=== PATIENT | male | born 1965 | race Caucasian/White ===

== ENCOUNTER 2020-11-21 11:28 | Emergency (ER) | payer MEDICAID, SELFPAY ==
--- NOTE | ~2020-11-21 | CT_ITS ---
EXAMINATION: CT ABDOMEN AND PELVIS WITH CONTRAST CLINICAL INFORMATION: Abdominal pain. Periumbilical. COMPARISON: 01/14/2019 TECHNIQUE: Multidetector volumetric images were obtained from the superior aspect of the liver through the pubic symphysis following administration 85 mL of Omnipaque 350 intravenous contrast. Sagittal and coronal reformatted images were obtained on the technologist's workstation. Oral contrast: No This CT examination was performed using dose optimization techniques as appropriate, variously including the following: *Automated exposure control *Adjustment of mA and/or kV according to patient size (this includes techniques or standardized protocols for targeted exams where dose is matched to indication/reason for exam; i.e. extremities or head) *Use of iterative reconstruction technique DLP: 499 mGy-cm FINDINGS: LUNG BASES: The visualized lung bases are unremarkable. LIVER, GALLBLADDER, AND BILIARY TREE: The liver is normal in size, shape, and attenuation. No focal hepatic lesion or biliary ductal dilatation is present. The gallbladder is unremarkable with no evidence of radiopaque gallstones, gallbladder wall thickening, or obvious pericholecystic inflammatory changes. PANCREAS: Unremarkable. SPLEEN: Unremarkable. ADRENAL GLANDS: Unremarkable. KIDNEYS AND URETERS: The kidneys are normal in size, shape, and attenuation. No hydronephrosis, hydroureter, or calculi seen. No perinephric stranding. BLADDER: Unremarkable. GASTROINTESTINAL TRACT: Stomach, small bowel, and colon are normal in caliber. No bowel wall thickening or surrounding inflammatory changes. Appendix is normal. No intraperitoneal free fluid or free air. ABDOMINAL WALL: Very tiny fat-containing umbilical hernia. No bowel involvement. No evidence of strangulation or incarceration.. LYMPH NODES: Normal. VASCULAR: Atherosclerotic calcifications are present in the abdominal aorta and iliac arteries. No aneurysmal dilatation. PELVIC VISCERA: The prostate and seminal vesicles are unremarkable. OSSEOUS STRUCTURES: No acute osseous abnormalities. Lumbar spine appears relatively well-preserved. CT/CT abdomen pelvis w con IMPRESSION: 1. No acute intra-abdominal or intrapelvic abnormalities. Normal appendix. Tiny fat-containing umbilical hernia with no bowel involvement. 2. No appreciable renal or ureteral calculi. No evidence of obstructive uropathy.
[2020-11-21 11:41] VITALS: BP 151/105; PULSE 66; RESP 18; TEMP 36.6; O2SAT 98; BMI 24.3
[2020-11-21 14:21] VITALS: BP 162/100; PULSE 77; RESP 18; TEMP 36.8; O2SAT 98
--- NOTE | 2020-11-21 14:48 | ED.ABDPAIN ---
HPI - Abdominal Pain General Chief Complaint: Abdominal Pain <CLEO Woods Last Filed: 11/21/20 18:26> Stated Complaint: vomiting, diarrhea <CLEO Woods Last Filed: 11/21/20 18:26> Time Seen by Provider: 11/21/20 12:54 <CLOE Woods Last Filed: 11/21/20 18:26> Source: patient <CLEO Woods Last Filed: 11/21/20 18:26> Mode of arrival: ambulatory <CLEO Woods Last Filed: 11/21/20 18:26> Limitations: no limitations <CLEO Woods Last Filed: 11/21/20 18:26> History of Present Illness HPI narrative: patient presents to ED for abdominal pain with diarrhea since yesterday. Denies any fever or chills. Patient states no chest pain, shortness of breath, dysuria, hematuria, flank pain, headache, dizziness, testicular bleeding, penile lesions, penile discharge. Patient denies any recent hospital admission or a new antibiotic prescription <CLEO Woods Last Filed: 11/21/20 18:26> MD elicited complaint: abdominal pain <CLEO Woods Last Filed: 11/21/20 18:26> Related Data Home Medications: Previous Rx's Medication Instructions Recorded ondansetron 4 mg PO Q8H PRN #10 tab 11/21/20 <CLEO Woods Last Filed: 11/21/20 18:26> Allergies/Adverse Reactions: Allergies Allergy/AdvReac Type Severity Reaction Status Date / Time No Known Allergies Allergy Verified 11/21/20 11:53 [No Known Allergies*] <CLEO Woods Last Filed: 11/21/20 18:26> Review of Systems Review of Systems Yes all other systems are reviewed and are negative <CLEO Woods Last Filed: 11/21/20 18:26> Constitutional: Reports as per HPI and Reports no additional constitutional complaints <CLEO Woods Last Filed: 11/21/20 18:26> Eyes: Reports as per HPI and Reports no additional eye complaints <CLEO Woods Last Filed: 11/21/20 18:26> Reports system reviewed and no additional complaints, except as documented and Reports as per HPI <CLEO Woods Last Filed: 11/21/20 18:26> Cardiovascular: Reports as per HPI and Reports no additional cardiovascular complaints <CLEO Woods Last Filed: 11/21/20 18:26> Respiratory: Reports as per HPI and Reports no additional respiratory complaints <CLEO Woods Last Filed: 11/21/20 18:26> Gastrointestinal: Reports as per HPI, Reports no additional gastrointestinal complaints, Reports abdominal pain, Reports diarrhea and Reports nausea <CLEO Woods Last Filed: 11/21/20 18:26> Genitourinary: Reports no additional male genitourinary complaints and Reports as per HPI <CLEO Woods Last Filed: 11/21/20 18:26> Musculoskeletal: Reports no additional musculoskeletal complaints and Reports as per HPI <CLEO Woods Last Filed: 11/21/20 18:26> Reports system reviewed and no additional complaints, except as documented and Reports as per HPI <CLEO Woods Last Filed: 11/21/20 18:26> Psychiatric: Reports no additional psychiatric complaints and Reports as per HPI <CLEO Woods Last Filed: 11/21/20 18:26> Physical Exam Vital Signs: Vital Signs: Last Vital Signs Temp 98.3 F 11/21/20 17:53 Pulse 61 11/21/20 20:15 Resp 16 11/21/20 20:15 BP 163/102 H 11/21/20 20:15 Pulse Ox 97 11/21/20 20:15 Body Mass Index 24.3 <CLEO Woods Last Filed: 11/21/20 18:26> Vital Signs: Last Vital Signs Temp 98.3 F 11/21/20 17:53 Pulse 61 11/21/20 20:15 Resp 16 11/21/20 20:15 BP 163/102 H 11/21/20 20:15 Pulse Ox 97 11/21/20 20:15 Body Mass Index 24.3 <CLEO Vieyra Last Filed: 11/21/20 20:30> Const: General: cooperative, healthy appearing, comfortable, no acute distress, well developed, alert, awake and Physically active <Jaya Hill, PA Geraldine Last Filed: 11/21/20 18:26> Orientation/consciousness: patient oriented x3 <Jaya Sergio, PA Geraldine Last Filed: 11/21/20 18:26> HENMT: Head: Yes normal to inspection, Yes No palpable skull fracture present, Yes normocephalic, Yes atraumatic and No abrasion <Jaya Sergio, PA Geraldine Last Filed: 11/21/20 18:26> Eyes: General: appearance normal, both eyes and all related structures <Jaya Sergio, PA Geraldine Last Filed: 11/21/20 18:26> Neck: Neck: Yes normal visual inspection, Yes full ROM, Yes no lymphadenopathy, Yes no meningeal signs, Yes trachea midline, Yes supple and No tender <Jaya Sergio, PA Geraldine Last Filed: 11/21/20 18:26> Chest: Chest palpation & inspection: normal inspection of the chest and normal palpation of entire chest wall <Jaya Sergio, PA Geraldine Last Filed: 11/21/20 18:26> Resp: Effort & Inspection: normal respiratory effort and able to speak in complete sentences <Jaya Sergio, PA Geraldine Last Filed: 11/21/20 18:26> Auscultation: clear to auscultation bilaterally <Jaya Sergio, PA Geraldine Filed: 11/21/20 18:26> Cardio: Jugular venous distension: no JVD <Jaya Sergio, PA Geraldine Last Filed: 11/21/20 18:26> Heart sounds: S1 normal heart sound present and S2 normal heart sound present <Jaya Sergio, PA Geraldine Last Filed: 11/21/20 18:26> GI: Inspection: Yes normal to inspection and No abdominal wall ecchymosis <Jaya Sergio, PA Geraldine Last Filed: 11/21/20 18:26> Palpation (GI): Tenderness to palpation present (GI) in the LLQ, in the RLQ and periumbilically, no guarding and not rigid <CLEO Woods Geraldine Last Filed: 11/21/20 18:26> : General: No CVA tenderness and Yes no CVA tenderness <CLEO Woods Geraldine Last Filed: 11/21/20 18:26> Back/Spine/Pelvis: Back: no CVA tenderness, No CVA tenderness and No back tenderness <CLEO Woods Last Filed: 11/21/20 18:26> Skin: General skin exam: no rashes or lesions noted and elasticity normal <CLEO Woods Last Filed: 11/21/20 18:26> Neuro: General: patient oriented x3, gait normal, no meningeal signs and CN's II-XI intact bilaterally <CLEO Woods Last Filed: 11/21/20 18:26> Cranial nerves: Yes CN's II-XII intact bilaterally <CLEO Woods Last Filed: 11/21/20 18:26> Extrem: General: Yes normal to inspection and Yes full ROM <CLEO Woods Last Filed: 11/21/20 18:26> Psych: Appearance: grossly normal, well kempt and not disheveled <CLEO Woods Last Filed: 11/21/20 18:26> Course Course Course Narrative: patient has significant tenderness and periumbilical area. Order labs UA and meds. Also would do a SARS Test ordered. Possible CT scan <CLEO Woods Last Filed: 11/21/20 18:26> Reevaluation(s) Reevaluation #1: patient labs are at baseline. UA negative for UTI. COVID swab negative. Patient is sent for abdominal CT scan to rule out any abdominal etiology. Case will be signed out to CLEO Baer <CLEO Woods Last Filed: 11/21/20 18:26> CT scan showing tiny fat containging umbilical hernia. No acute intraabdominal pathology. Labs are unremarkable. COVID negative. Patient awoken from sleep to discuss results. He has no abdominal tenderness. He is stable for discharge home. Probable gastroenteritis causing N/V/D. No vomiting in the 8+ hours observed in the ER. Stable for d/c. Patient agrees with plan. <CLEO Vieyra Last Filed: 11/21/20 20:30> Time: 18:25 <CLEO Woods Last Filed: 11/21/20 18:26> MDM - Abdominal Pain MDM Narrative Medical decision making narrative: abdominal pain <CLEO Woods Last Filed: 11/21/20 18:26> Lab Data Result diagrams: : 11/21/20 15:05 11/21/20 15:05 <CLEO Woods - Last Filed: 11/21/20 18:26> Labs: Lab Results 11/21/20 11/21/20 11/21/20 Range/Units 14:46 15:05 15:05 WBC 6.1 (4.8-10.8) X10*3/uL RBC 4.62 (4.60-5.80) X10*6/uL Hgb 13.9 L (14.0-18.0) g/dl Hct 42.4 (42-52) % MCV 91.8 (80-98) fL MCH 30.1 (27.0-33.0) pg MCHC 32.8 (31.0-36.0) g/dl RDW 12.8 (11.0-16.0) % Plt Count 214 (160-400) X10*3/uL MPV 10.2 (9.4-12.4) fL Immature Gran % (Auto) 0.3 (0.0-0.4) % Neut % (Auto) 70.6 (45-73) % Lymph % (Auto) 18.9 L (20-40) % [place] % (Auto) 9.9 (2-11) % Eos % (Auto) 0.0 (0-4) % Baso % (Auto) 0.3 (0-2) % Lymph # (Auto) 1.2 (1.2-4.9) X10*3/uL [place] # (Auto) 0.6 (0.1-1.2) X10*3/uL Eos # (Auto) 0.0 (0.0-0.4) X10*3/uL Baso # (Auto) 0.0 (0.0-0.2) X10*3/uL Abs Immat Gran (auto) 0.02 (0.00-0.03) X10*3/uL Absolute Neuts (auto) 4.3 (2.0-8.3) X10*3/uL Absolute Nucleated RBC 0.000 (0.0-0.012) X10*3/uL Nucleated RBC % (auto) 0.0 (0.0-0.2) /100WBC PT 11.6 (9.9-13.0) SEC INR 1.0 (0.9-1.1) APTT 29.3 (24.1-38.0) SEC Sodium (135-145) mmol/L Potassium (3.3-5.1) mmol/L Chloride (96-108) mmol/L Carbon Dioxide (22-29) mmol/L Anion Gap (12-20) BUN (9-16) mg/dL Creatinine (0.5-1.4) mg/dL Estim Creat Clear Calc Estimated GFR Random Glucose (60-115) mg/dL Calcium (8.4-10.2) mg/dL Total Bilirubin (0.0-1.0) mg/dL Direct Bilirubin (0.0-0.5) mg/dL AST (5-37) U/L ALT (0-40) U/L Alkaline Phosphatase (39-117) U/L Total Protein (6.5-8.0) g/dL Albumin (3.5-5.0) g/dL Lipase (8-78) U/L Urine Color Urine Appearance Urine pH (5.0-8.0) Ur Specific [place] (1.005-1.025) Urine Protein (NEG-TRACE) MG/DL Urine Glucose (UA) (NEG) MG/DL Urine Ketones (NEG) MG/DL Urine Blood (NEG) Urine Nitrite (NEG) Ur Leukocyte Esterase (NEG) Urine RBC (0) /HPF Urine WBC (0-4) /HPF Ur Squamous Epith Cells /LPF Urine Bacteria /LPF Urine Mucus /LPF Coronavirus (PCR) NEGATIVE (Negative) Influenza Type A (PCR) NEGATIVE (Negative) Influenza Type B (PCR) NEGATIVE (Negative) RSV RNA Qual (PCR) NEGATIVE (Negative) 11/21/20 11/21/20 11/21/20 Range/Units 15:05 15:05 16:51 WBC (4.8-10.8) X10*3/uL RBC (4.60-5.80) X10*6/uL Hgb (14.0-18.0) g/dl Hct (42-52) % MCV (80-98) fL MCH (27.0-33.0) pg MCHC (31.0-36.0) g/dl RDW (11.0-16.0) % Plt Count (160-400) X10*3/uL MPV (9.4-12.4) fL Immature Gran % (Auto) (0.0-0.4) % Neut % (Auto) (45-73) % Lymph % (Auto) (20-40) % [place] % (Auto) (2-11) % Eos % (Auto) (0-4) % Baso % (Auto) (0-2) % Lymph # (Auto) (1.2-4.9) X10*3/uL [place] # (Auto) (0.1-1.2) X10*3/uL Eos # (Auto) (0.0-0.4) X10*3/uL Baso # (Auto) (0.0-0.2) X10*3/uL Abs Immat Gran (auto) (0.00-0.03) X10*3/uL Absolute Neuts (auto) (2.0-8.3) X10*3/uL Absolute Nucleated RBC (0.0-0.012) X10*3/uL Nucleated RBC % (auto) (0.0-0.2) /100WBC PT (9.9-13.0) SEC INR (0.9-1.1) APTT (24.1-38.0) SEC Sodium 138 (135-145) mmol/L Potassium 4.8 (3.3-5.1) mmol/L Chloride 100 (96-108) mmol/L Carbon Dioxide 26 (22-29) mmol/L Anion Gap 17 (12-20) BUN 20 H (9-16) mg/dL Creatinine 1.29 (0.5-1.4) mg/dL Estim Creat Clear Calc 66.2 Estimated GFR 58 Random Glucose 98 (60-115) mg/dL Calcium 9.8 (8.4-10.2) mg/dL Total Bilirubin 0.7 0.7 (0.0-1.0) mg/dL Direct Bilirubin 0.3 (0.0-0.5) mg/dL AST 102 H 102 H (5-37) U/L ALT 93 H 93 H (0-40) U/L Alkaline Phosphatase 100 100 (39-117) U/L Total Protein 8.6 H 8.5 H (6.5-8.0) g/dL Albumin 4.2 4.2 (3.5-5.0) g/dL Lipase 13 (8-78) U/L Urine Color YELLOW Urine Appearance CLEAR Urine pH 6.5 (5.0-8.0) Ur Specific [place] 1.025 (1.005-1.025) Urine Protein 2+ H (NEG-TRACE) MG/DL Urine Glucose (UA) NEG (NEG) MG/DL Urine Ketones 15 (NEG) MG/DL Urine Blood TRACE (NEG) Urine Nitrite NEG (NEG) Ur Leukocyte Esterase NEG (NEG) Urine RBC 1-4 (0) /HPF Urine WBC 0 (0-4) /HPF Ur Squamous Epith Cells 1+ /LPF Urine Bacteria NONE /LPF Urine Mucus 1+ /LPF Coronavirus (PCR) (Negative) Influenza Type A (PCR) (Negative) Influenza Type B (PCR) (Negative) RSV RNA Qual (PCR) (Negative) <CLEO Woods - Last Filed: 11/21/20 18:26> Lab Results 11/21/20 11/21/20 11/21/20 Range/Units 14:46 15:05 15:05 WBC 6.1 (4.8-10.8) X10*3/uL RBC 4.62 (4.60-5.80) X10*6/uL Hgb 13.9 L (14.0-18.0) g/dl Hct 42.4 (42-52) % MCV 91.8 (80-98) fL MCH 30.1 (27.0-33.0) pg MCHC 32.8 (31.0-36.0) g/dl RDW 12.8 (11.0-16.0) % Plt Count 214 (160-400) X10*3/uL MPV 10.2 (9.4-12.4) fL Immature Gran % (Auto) 0.3 (0.0-0.4) % Neut % (Auto) 70.6 (45-73) % Lymph % (Auto) 18.9 L (20-40) % [place] % (Auto) 9.9 (2-11) % Eos % (Auto) 0.0 (0-4) % Baso % (Auto) 0.3 (0-2) % Lymph # (Auto) 1.2 (1.2-4.9) X10*3/uL [place] # (Auto) 0.6 (0.1-1.2) X10*3/uL Eos # (Auto) 0.0 (0.0-0.4) X10*3/uL Baso # (Auto) 0.0 (0.0-0.2) X10*3/uL Abs Immat Gran (auto) 0.02 (0.00-0.03) X10*3/uL Absolute Neuts (auto) 4.3 (2.0-8.3) X10*3/uL Absolute Nucleated RBC 0.000 (0.0-0.012) X10*3/uL Nucleated RBC % (auto) 0.0 (0.0-0.2) /100WBC PT 11.6 (9.9-13.0) SEC INR 1.0 (0.9-1.1) APTT 29.3 (24.1-38.0) SEC Sodium (135-145) mmol/L Potassium (3.3-5.1) mmol/L Chloride (96-108) mmol/L Carbon Dioxide (22-29) mmol/L Anion Gap (12-20) BUN (9-16) mg/dL Creatinine (0.5-1.4) mg/dL Estim Creat Clear Calc Estimated GFR Random Glucose (60-115) mg/dL Calcium (8.4-10.2) mg/dL Total Bilirubin (0.0-1.0) mg/dL Direct Bilirubin (0.0-0.5) mg/dL AST (5-37) U/L ALT (0-40) U/L Alkaline Phosphatase (39-117) U/L Total Protein (6.5-8.0) g/dL Albumin (3.5-5.0) g/dL Lipase (8-78) U/L Urine Color Urine Appearance Urine pH (5.0-8.0) Ur Specific [place] (1.005-1.025) Urine Protein (NEG-TRACE) MG/DL Urine Glucose (UA) (NEG) MG/DL Urine Ketones (NEG) MG/DL Urine Blood (NEG) Urine Nitrite (NEG) Ur Leukocyte Esterase (NEG) Urine RBC (0) /HPF Urine WBC (0-4) /HPF Ur Squamous Epith Cells /LPF Urine Bacteria /LPF Urine Mucus /LPF Coronavirus (PCR) NEGATIVE (Negative) Influenza Type A (PCR) NEGATIVE (Negative) Influenza Type B (PCR) NEGATIVE (Negative) RSV RNA Qual (PCR) NEGATIVE (Negative) 11/21/20 11/21/20 11/21/20 Range/Units 15:05 15:05 16:51 WBC (4.8-10.8) X10*3/uL RBC (4.60-5.80) X10*6/uL Hgb (14.0-18.0) g/dl Hct (42-52) % MCV (80-98) fL MCH (27.0-33.0) pg MCHC (31.0-36.0) g/dl RDW (11.0-16.0) % Plt Count (160-400) X10*3/uL MPV (9.4-12.4) fL Immature Gran % (Auto) (0.0-0.4) % Neut % (Auto) (45-73) % Lymph % (Auto) (20-40) % [place] % (Auto) (2-11) % Eos % (Auto) (0-4) % Baso % (Auto) (0-2) % Lymph # (Auto) (1.2-4.9) X10*3/uL [place] # (Auto) (0.1-1.2) X10*3/uL Eos # (Auto) (0.0-0.4) X10*3/uL Baso # (Auto) (0.0-0.2) X10*3/uL Abs Immat Gran (auto) (0.00-0.03) X10*3/uL Absolute Neuts (auto) (2.0-8.3) X10*3/uL Absolute Nucleated RBC (0.0-0.012) X10*3/uL Nucleated RBC % (auto) (0.0-0.2) /100WBC PT (9.9-13.0) SEC INR (0.9-1.1) APTT (24.1-38.0) SEC Sodium 138 (135-145) mmol/L Potassium 4.8 (3.3-5.1) mmol/L Chloride 100 (96-108) mmol/L Carbon Dioxide 26 (22-29) mmol/L Anion Gap 17 (12-20) BUN 20 H (9-16) mg/dL Creatinine 1.29 (0.5-1.4) mg/dL Estim Creat Clear Calc 66.2 Estimated GFR 58 Random Glucose 98 (60-115) mg/dL Calcium 9.8 (8.4-10.2) mg/dL Total Bilirubin 0.7 0.7 (0.0-1.0) mg/dL Direct Bilirubin 0.3 (0.0-0.5) mg/dL AST 102 H 102 H (5-37) U/L ALT 93 H 93 H (0-40) U/L Alkaline Phosphatase 100 100 (39-117) U/L Total Protein 8.6 H 8.5 H (6.5-8.0) g/dL Albumin 4.2 4.2 (3.5-5.0) g/dL Lipase 13 (8-78) U/L Urine Color YELLOW Urine Appearance CLEAR Urine pH 6.5 (5.0-8.0) Ur Specific [place] 1.025 (1.005-1.025) Urine Protein 2+ H (NEG-TRACE) MG/DL Urine Glucose (UA) NEG (NEG) MG/DL Urine Ketones 15 (NEG) MG/DL Urine Blood TRACE (NEG) Urine Nitrite NEG (NEG) Ur Leukocyte Esterase NEG (NEG) Urine RBC 1-4 (0) /HPF Urine WBC 0 (0-4) /HPF Ur Squamous Epith Cells 1+ /LPF Urine Bacteria NONE /LPF Urine Mucus 1+ /LPF Coronavirus (PCR) (Negative) Influenza Type A (PCR) (Negative) Influenza Type B (PCR) (Negative) RSV RNA Qual (PCR) (Negative) <CLEO Vieyra - Last Filed: 11/21/20 20:30> Discharge Plan Discharge Clinical Impression: Gastroenteritis Hernia, umbilical Qualifiers: Obstruction and gangrene presence: without obstruction or gangrene Qualified Code(s): K42.9 - Umbilical hernia without obstruction or gangrene <CLEO Woods - Last Filed: 11/21/20 18:26> Patient Disposition: Home, Self-Care <CLEO Woods - Last Filed: 11/21/20 18:26> Instructions: Gastroenteritis (ED), Umbilical Hernia (ED) <CLEO Woods - Last Filed: 11/21/20 18:26> Additional Instructions: Your COVID test was negative. Your blood workup was unremarkable. Your CT scan showed a tiny fat-containing hernia without any bowel involvment. Your symptoms are most likely due to gastroenteritis. Rest and drink plenty of fluids. Stick to a bland diet while you are not feeling well. Take the prescribed medication as needed for nausea. Recommend Pepto Bismol or Imodium as needed for diarrhea. Follow up with your doctor as needed. If you develop new or worsening symptoms call 911 or come back to the ER for further evaluation. <CLEO Woods - Last Filed: 11/21/20 18:26> Prescriptions: New ondansetron 4 mg tablet,disintegrating 4 mg PO Q8H PRN (Reason: nausea and vomiting) Qty: 10 RF: 0 <CLEO Woods - Last Filed: 11/21/20 18:26> Stand Alone Forms: Work/School Release <CLEO Woods - Last Filed: 11/21/20 18:26> [facility] Past Medical History Medical History: Medical History (Updated 11/21/20 @ 20:28 by CLEO Vieyra) Hep C w/o coma, chronic <CLEO Woods - Last Filed: 11/21/20 18:26> Social History Social History: Social History Alcohol intake: current Alcohol intake frequency: a few times a week Patient Tobacco Use Status: Current everyday Tobacco user Use of substances other than those prescribed or required for medical reasons: No Substance Use Type: Former Substance User Advance Directives: No Advance Directives Information Provided: No <CLEO Woods - Last Filed: 11/21/20 18:26>
[2020-11-21] MEDS: 0.9 % Sodium Chloride 1,000 ML 999 ML IV (15:01)
[2020-11-21] MEDS: Famotidine/PF 20 MG/2 ML VIAL IVPUSH (15:01)
[2020-11-21] MEDS: ondansetron HCL 4 MG/2 ML VIAL IVPUSH (15:01)
[2020-11-21] MEDS: diphenhydrAMINE HCL 50 MG/ML VIAL IVPUSH (15:01)
--- NOTE | 2020-11-21 15:06 | PC.NURSE ---
patient a&ox3, iv inserted, labs drawn, pt medicated per order, will continue to monitor.
[2020-11-21 15:15] LABS: MANUAL DIFF FLAG NO
[2020-11-21 15:22] LABS: Basophils Percent Auto 0.3 % (0-2); Hematocrit 42.4 % (42-52); Hemoglobin 13.9 g/dl (14.0-18.0); Imm Gran Abs Auto 0.02 X10*3/uL (0.00-0.03); Imm Gran Pct Auto 0.3 % (0.0-0.4); Lymphocytes Absolute Auto 1.2 X10*3/uL (1.2-4.9); Lymphocytes Percent Auto 18.9 % (20-40); Mean Corpuscular HGB Conc 32.8 g/dl (31.0-36.0); Mean Corpuscular Hemoglobin 30.1 pg (27.0-33.0); Mean Corpuscular Volume 91.8 fL (80-98); Mean Platelet Volume 10.2 fL (9.4-12.4); Monocytes Absolute Auto 0.6 X10*3/uL (0.1-1.2); Monocytes Percent Auto 9.9 % (2-11); Neutrophils Absolute Auto 4.3 X10*3/uL (2.0-8.3); Neutrophils Percent Auto 70.6 % (45-73); Platelet Count 214 X10*3/uL (160-400); Prothrombin Time 11.6 SEC (9.9-13.0); Red Blood Count 4.62 X10*6/uL (4.60-5.80); Red Cell Distribution Width 12.8 % (11.0-16.0); White Blood Count 6.1 X10*3/uL (4.8-10.8)
[2020-11-21 15:24] LABS: Partial Thromboplastin Time 29.3 SEC (24.1-38.0)
[2020-11-21 15:41] LABS: Influenza A PCR NEGATIVE (Negative); Influenza B PCR NEGATIVE (Negative); Resp Syncy Virus RNA Qual PCR NEGATIVE (Negative); SARS COV2 PCR INHOUSE NEGATIVE (Negative)
[2020-11-21 15:45] VITALS: BP 168/106; PULSE 76; RESP 18; TEMP 36.8; O2SAT 97
--- NOTE | 2020-11-21 15:46 | PC.NURSE ---
patient a&ox3, currently watching tv, vitals obtained, pt continues to be hypertensive, pt states his pain has lowered to a 3/10 and his nausea has resolved, will continue to monitor.
[2020-11-21 15:52] LABS: Alanine Aminotransferase 93 U/L (0-40); Albumin Level 4.2 g/dL (3.5-5.0); Alkaline Phosphatase 100 U/L (39-117); Anion Gap 17 (12-20); Aspartate Amino Transferase 102 U/L (5-37); Bilirubin Direct 0.3 mg/dL (0.0-0.5); Bilirubin Total 0.7 mg/dL (0.0-1.0); Blood Urea Nitrogen 20 mg/dL (9-16); Calcium 9.8 mg/dL (8.4-10.2); Carbon Dioxide 26 mmol/L (22-29); Chloride 100 mmol/L (96-108); Creatinine Clr Calc Pharmacy 66.2; Estimated Glomerular Filt Rate 58; Glucose Random 98 mg/dL (60-115); Lipase 13 U/L (8-78); Potassium 4.8 mmol/L (3.3-5.1); Sodium 138 mmol/L (135-145); Total Protein 8.5 g/dL (6.5-8.0); Total Protein 8.6 g/dL (6.5-8.0)
[2020-11-21 17:05] LABS: Glucose Urine UA NEG (NEG); Leukocyte Esterase Urine NEG (NEG); Nitrite Urine NEG (NEG); PH 6.5 (5.0-8.0); Specific Gravity - Urine 1.025 (1.005-1.025); Urine Blood TRACE (NEG); Urine Ketones 15 MG/DL (NEG); Urine Protein 2+ MG/DL (NEG-TRACE)
[2020-11-21 17:08] LABS: Appearance Urine CLEAR; Color Urine YELLOW
[2020-11-21 17:12] LABS: WBC Urine 0 /HPF (0-4)
[2020-11-21 17:13] LABS: Mucus Urine 1+ /LPF; Squamous Epithelial Cell Urine 1+ /LPF
[2020-11-21 17:53] VITALS: BP 172/89; PULSE 63; RESP 18; TEMP 36.8; O2SAT 95
--- NOTE | 2020-11-21 17:53 | PC.NURSE ---
patient sleeping, woke to verbal stimulus, vss, will continue to monitor.
[2020-11-21] MEDS: iohexoL 350 MG/ML 100 ML INFUS..BTL IV (18:17)
[2020-11-21 20:15] VITALS: BP 163/102; PULSE 61; RESP 16; O2SAT 97
--- NOTE | 2020-11-21 20:21 | PC.NURSE ---
patient sleeping/wakes to verbal stimulus, vss, will continue to monitor.
== END 2020-11-21 20:40 | disposition home or self-care (01) ==
PROVIDERS: Physician Assistant; Emergency Provider Emergency Medicine Emergency Medical Services
DX: K52.9 Noninfective gastroenteritis and colitis, unspecified (principal); K42.9 Umbilical hernia without obstruction or gangrene; Z20.822 Contact with and (suspected) exposure to COVID-19; R11.10 Vomiting, unspecified
CPT/HCPCS: 0241U; 36415; 74177; 80053; 80076; 81001; 82248; 83690; 85025; 85610; 85730; 96361; 96374; 96375; 99284; 99285; J1200; J2405; Q9967

== ENCOUNTER → 2020-12-12 10:09 | Outpatient (REF) | payer MEDICAID, SELFPAY ==
--- NOTE | 2020-12-12 10:14 | ECG_ITS ---
Test Reason : QT PROLONGATION Blood Pressure : / mmHG Vent. Rate : 062 BPM Atrial Rate : 062 BPM P-R Int : 130 ms QRS Dur : 094 ms QT Int : 444 ms P-R-T Axes : 061 007 015 degrees QTc Int : 450 ms Normal sinus rhythm Possible Left atrial enlargement Left ventricular hypertrophy Nonspecific T wave abnormality Abnormal ECG When compared with ECG of 21-APR-2016 14:01, Nonspecific T wave abnormality now evident in Lateral leads Referred By: Lilly Alvarez Electronically Signed By:EMERALD OCHOA
== END ==
LOC: HO.CARD 10:09
PROVIDERS: Visit Provider Family Medicine
DX: Z79.899 Other long term (current) drug therapy (principal)
CPT/HCPCS: 93005

== ENCOUNTER 2021-06-27 13:32 | Emergency (ER) | payer MEDICAID, SELFPAY ==
[2021-06-27 13:45] VITALS: BP 151/95; PULSE 64; RESP 19; TEMP 36.6; O2SAT 98; BMI 22.1
== END 2021-06-27 19:31 | disposition left against medical advice (07) ==
PROVIDERS: Emergency Provider Emergency Medicine
DX: R04.0 Epistaxis (principal)
CPT/HCPCS: 99281; 99282

== ENCOUNTER 2022-06-04 15:01 | Outpatient (REF) | payer MEDICAID, SELFPAY ==
--- NOTE | ~2022-06-04 | XR_ITS ---
EXAMINATION: XR CHEST CLINICAL INFORMATION: Wheezing. COMPARISON: Chest radiographs dated 09/02/2013. TECHNIQUE: 2 views of the chest were obtained. FINDINGS: No significant abnormality is noted involving the heart, lungs, mediastinum, bony thorax or soft tissues. Multilevel sternotomy wires are intact. XR/XR chest 2V IMPRESSION: No acute cardiopulmonary process.
== END 2022-06-04 15:02 | disposition home or self-care (01) ==
LOC: HO.XRAY 15:01
PROVIDERS: Visit Provider Emergency Medicine
DX: R06.2 Wheezing (principal)
CPT/HCPCS: 71046